=== PATIENT | female | born 1985 | race Caucasian/White ===

== ENCOUNTER 2017-11-17 22:33 | Emergency (ER) | payer OTHER ==
[2017-11-17 22:35] VITALS: BMI 26.4
[2017-11-17] MEDS ORDERED: ONDANSETRON 4 MG/2 ML VIAL IVPUSH ONE (22:59)
[2017-11-17] MEDS ORDERED: morphine CARPU-JECT 4 MG/1 ML DISP.SYRIN IVPUSH ONE (22:59)
[2017-11-17] MEDS ORDERED: SODIUM CHLORIDE 1,000 ML IV STA (22:59)
[2017-11-17] MEDS ORDERED: FAMOTIDINE 20 MG/50 ML IVPB 20 MG/50 ML MG IVPB ONE (23:15)
--- NOTE | 2017-11-17 23:15 | PDOC ---
History of Present Illness - General Chief Complaint: Pain Stated Complaint: ABDOMINAL PAIN Time Seen by Provider: 11/17/17 22:46 History Source: Patient Exam Limitations: No Limitations - History of Present Illness Initial Comments: 11/17/17 23:07 Patient is a 32F with history of x3, bilateral tubal ligation, and tummy tuck here today complaining of 2 day sof abdominal pain. She states that the pain started with multiple episodes of diarrhea with a small amount of blood in one bowel movement. Patient states that the abdominal pain then worsened after these episodes. Denies vomiting and fever, endorses chills and nausea. Patient states that she tried multiple pain killers including dayquil, naproxen, aspirin and motrin. Patient states that she can't get comfortable and says the pain doesn't go away. Denies vaginal pain and vaginal discharge. LMP 1 week ago. Denies pain with urination. Past History - Past Medical History Allergies/Adverse Reactions: Allergies Allergy/AdvReac Type Severity Reaction Status Date / Time No Known Allergies Allergy Verified 11/17/17 22:36 Home Medications: Ambulatory Orders Ibuprofen 800 mg PO QID PRN #30 tablet 04/29/16 COPD: No - Reproductive History (#): 3 Para: 3 Cervical CA: No Dysfunctional Uterine Bleeding: No Ectopic : No Endometrial CA: No Polycystic Ovaries: No Therapeutic (s) & number: No Tubal Ligation: Yes Spontaneous : 0 - Immunization History Immunization Up to Date: Yes - Suicide/Smoking/Psychosocial Hx Smoking Status: Yes Smoking History: Never smoked Have you smoked in the past 12 months: No Number of Cigarettes Smoked Daily: 0 Hx Alcohol Use: Yes (SOCIAL) Drug/Substance Use Hx: No Substance Use Type: None Review of Systems - Review of Systems Comments:: 11/17/17 23:15 GENERAL/CONSTITUTIONAL: No fever or chills. No weakness. HEAD, EYES, EARS, NOSE AND THROAT: No change in vision. No sore throat. CARDIOVASCULAR: No chest pain or shortness of breath RESPIRATORY: No cough, wheezing, or hemoptysis. GASTROINTESTINAL: + nausea, +diarrhea GENITOURINARY: No dysuria, frequency, or change in urination. MUSCULOSKELETAL: No joint or muscle swelling or pain. No neck or back pain. SKIN: No rash NEUROLOGIC: No headache, vertigo, loss of consciousness, or change in strength/ sensation. ENDOCRINE: No increased thirst. No abnormal weight change HEMATOLOGIC/LYMPHATIC: No anemia, easy bleeding, or history of blood clots. ALLERGIC/IMMUNOLOGIC: No hives or skin allergy. *Physical Exam - Vital Signs Last Vital Signs Temp Pulse Resp BP Pulse Ox 98.5 F 64 18 108/71 100 11/17/17 22:33 11/17/17 22:33 11/17/17 22:33 11/17/17 22:33 11/17/17 22:33 - Physical Exam Comments: 11/17/17 23:15 GENERAL: Awake, alert, and fully oriented, in no acute distress HEAD: No signs of trauma, normocephalic, atraumatic EYES: PERRLA, EOMI, sclera anicteric, conjunctiva clear ENT: Auricles normal inspection, hearing grossly normal, nares patent, oropharynx clear without exudates. Moist mucosa NECK: Normal ROM, supple, no lymphadenopathy, JVD, or masses LUNGS: No distress, speaks full sentences, clear to auscultation bilaterally HEART: Regular rate and rhythm, normal S1 and S2, no murmurs, rubs or gallops, peripheral pulses normal and equal bilaterally. ABDOMEN: Soft, +LLQ tenderness, no guarding, no rebound EXTREMITIES: Normal inspection, Normal range of motion, no edema. No clubbing or cyanosis. NEUROLOGICAL: Cranial nerves II through XII grossly intact. Normal speech, no focal sensorimotor deficits SKIN: Warm, Dry, normal turgor, no rashes or lesions noted. ED Treatment Course - LABORATORY CBC & Chemistry Diagram: 11/18/17 00:40 11/18/17 00:40 - RADIOLOGY Radiology Studies Ordered: Category Date Time Status ABDOMEN & PELVIS CT WITH CONTR [CT] Stat CT Scan 11/17/17 23:01 Ordered Medical Decision Making - Medical Decision Making 11/17/17 23:16 Patient is 32F here today complaining of abdominal pain. Vital signs stable and normal. Exam significant for LLQ pain. DDx includes, but is not limited to: colitis, diverticulitis, nephrolithiasis. Do not suspect ovarian torsion given pain's constant nature and associated diarrhea. 11/18/17 03:53 Laboratory Tests 11/18/17 11/18/17 11/18/17 00:40 00:40 01:28 WBC 11.5 H Hgb 11.9 Plt Count 269 BUN 9 Creatinine 0.5 L Serum , Qual Urine Nitrite Negative Ur Leukocyte Esterase Negative 11/18/17 01:41 WBC Hgb Plt Count BUN Creatinine Serum , Qual Negative Urine Nitrite Ur Leukocyte Esterase CBC shows small leukocytosis. CBC otherwise unremarkable. CMP reassuring. UA negative. Serum preg negative. CT scan shows no acute intestinal issues, does show bilateral cysts in each ovary. Patient reassessed, states that her pain has not significantly improved, on exam pain is distractable. At this point, still believe patient has pain secondary to diarrhea and not ovarian torsion, but patient may require ultrasound to rule out torsion. Risks and benefits of waiting until morning discussed with patient, patient states that she wishes to call her OBGYN or return to the ED later this morning. Believe this is reasonable plan, given return precautions. *DC/Admit/Observation/Transfer Diagnosis at time of Disposition: Abdominal pain - Discharge Dispostion Disposition: HOME Condition at time of disposition: Good Decision to Admit order: No - Referrals - Patient Instructions Printed Discharge Instructions: DI for Abdominal Pain-Adult Additional Instructions: Please return if you have any new, worsening or concerning symptoms. Please follow up with your OBYGN this morning or return to the ED. - Post Discharge Activity
[2017-11-18] MEDS ORDERED: morphine SULFATE 4 MG/ML VIAL ONE
[2017-11-18] MEDS ORDERED: ONDANSETRON 4 MG/2 ML VIAL ONE (00:01)
[2017-11-18] MEDS ORDERED: FAMOTIDINE 20 MG/50 ML IVPB 20 MG/50 ML MG IVPB ONE (00:01)
--- NOTE | 2017-11-18 00:32 | PDOC ---
Attending Attestation - Resident Resident Name: [email or web address] - ED Attending Attestation I have performed the following: I have examined & evaluated the patient, The case was reviewed & discussed with the resident, I agree w/resident's findings & plan, Exceptions are as noted - HPI HPI: 11/18/17 00:39 "The patient is a 32 year old female, with a significant past medical history of (x3), bilateral tubal ligation and tummy tuck, who presents to the ED complaining of abdominal pain for the past 2 days. She notes that she has had multiple episodes of watery brown diarrhea. Denies BRBPR or dark tarry stools but notes some blood streaks in the last episode of diarrhea. Pt denies N /V. Endorses lower abdominal pain. She denies any vaginal discharge or bleeding. The patient denies chest pain, shortness of breath, headache and dizziness. Denies fever, chills, nausea, vomiting, constipation. Denies dysuria, frequency , urgency and hematuria. LMP: 1 week ago Allergies: None Past surgical history: (x3), bilateral tubal ligation and tummy tuck Social History: Social Alcohol use. " - Physicial Exam PE: 11/18/17 00:40 "GENERAL: Awake, alert, and fully oriented, in no acute distress. HEAD: No signs of trauma EYES: PERRLA, EOMI, sclera anicteric, conjunctiva clear ENT: Auricles normal inspection, hearing grossly normal, nares patent, oropharynx clear without exudates. Moist mucosa NECK: Nontender, no stepoffs, Normal ROM, supple, no lymphadenopathy, JVD, or masses LUNGS: Breath sounds equal, clear to auscultation bilaterally. No wheezes, and no crackles HEART: Regular rate and rhythm, normal S1 and S2, no murmurs, rubs or gallops ABDOMEN: + LLQ TTP, normoactive bowel sounds. No guarding, no rebound. No masses EXTREMITIES: Normal range of motion, no edema. No clubbing or cyanosis. No cords, erythema, or tenderness NEUROLOGICAL: Cranial nerves II through XII intact. 5/5 strength and sensation in all extremities, Normal speech, normal gait, normal cerebellar function SKIN: Warm, Dry, normal turgor, no rashes or lesions noted. " - Medical Decision Making 11/18/17 00:40 32 F with LLQ pain and N+V. Will evaluate for colitis vs diverticulitis. Pt with h/o ovarian cysts but quality of pain is constant rather than colicky, making torsion less likely. - Labs, UA, UPT - CTAP - IVF, pain control
[2017-11-18 01:10] LABS: BASO % 0.7 % (0-2.0); EOS % 1.3 % (0-4.5); HEMATOCRIT 36.9 % (32.4-45.2); HEMOGLOBIN 11.9 GM/dL (10.7-15.3); LYMPH % 23.3 % (8-40); MCH 26.1 pg (25.7-33.7); MCHC 32.2 g/dl (32.0-36.0); MEAN CELL VOLUME 81.1 fl (80-96); MEAN PLT VOLUME 10.2 fl (7.5-11.1); MONO % 5.8 % (3.8-10.2); NEUT % 68.9 % (42.8-82.8); PLATELET COUNT 269 K/MM3 (134-434); RBC 4.55 M/mm3 (3.60-5.2); WHITE BLOOD COUNT 11.5 K/mm3 (4.0-10.0)
[2017-11-18 01:20] LABS: ALBUMIN 4.6 g/dl (3.4-5.0); ANION GAP 6 (8-16); BLOOD UREA NITROGEN 9 mg/dL (7-18); CALCIUM 8.8 mg/dL (8.5-10.1); CHLORIDE 106 mmol/L (98-107); CO2 28 mmol/L (21-32); CREATININE 0.5 mg/dL (0.55-1.02); GLUCOSE,RANDOM 92 mg/dL (74-106); POTASSIUM 3.7 mmol/L (3.5-5.1); SGOT/AST 20 U/L (15-37); SGPT/ALT 17 U/L (12-78); SODIUM 140 mmol/L (136-145)
[2017-11-18] MEDS ORDERED: morphine CARPU-JECT 4 MG/1 ML DISP.SYRIN IVPUSH ONE (01:20)
[2017-11-18 01:22] LABS: ALK PHOS 73 U/L (45-117); BILIRUBIN,TOTAL 0.2 mg/dL (0.2-1.0)
[2017-11-18 01:29] LABS: LIPASE 201 U/L (73-393)
[2017-11-18 01:48] LABS: URINE APPEARANCE SLCLOUDY; URINE BILIRUBIN NEGATIVE (<2.0 mg/dL); URINE COLOR YELLOW; URINE GLUCOSE (UA) NEGATIVE (NEGATIVE); URINE KETONE NEGATIVE (NEGATIVE); URINE LEUK ESTERASE NEGATIVE (NEGATIVE); URINE NITRITE NEGATIVE (NEGATIVE); URINE PROTEIN NEGATIVE (NEGATIVE); URINE UROBILINOGEN NEGATIVE mg/dL (0.2-1.0)
[2017-11-18] MEDS ORDERED: MORPHINE SULFATE 2 MG/ML VIAL ONE (03:43)
[2017-11-18 04:04] VITALS: BP 122/75; PULSE 72; TEMP 98.3
== END 2017-11-18 04:02 | disposition home or self-care (01) ==
LOC: JER 22:33
PROC: 3E033GC Introduction of Other Therapeutic Substance into Peripheral Vein, Percutaneous Approach (ICD-10-PCS; principal; 2017-11-17)
PROC: 3E033GC Introduction of Other Therapeutic Substance into Peripheral Vein, Percutaneous Approach (ICD-10-PCS; 2017-11-17)
PROC: 3E033NZ Introduction of Analgesics, Hypnotics, Sedatives into Peripheral Vein, Percutaneous Approach (ICD-10-PCS; 2017-11-17)
PROC: 3E033NZ Introduction of Analgesics, Hypnotics, Sedatives into Peripheral Vein, Percutaneous Approach (ICD-10-PCS; 2017-11-17)
DX: R10.30 Lower abdominal pain, unspecified (principal); N83.201 Unspecified ovarian cyst, right side; N83.202 Unspecified ovarian cyst, left side
CPT/HCPCS: 36415; 74177-TC; 80053; 80307; 81003; 83690; 84703; 85025; 99282-25; J7030

== ENCOUNTER 2018-08-03 21:16 | Emergency (ER) | payer OTHER ==
--- NOTE | 2018-08-03 21:25 | PDOC ---
Rapid Medical Evaluation Time Seen by Provider: 08/03/18 21:20 Medical Evaluation: Allergies Allergy/AdvReac Type Severity Reaction Status Date / Time No Known Allergies Allergy Verified 11/17/17 22:36 08/03/18 21:21 I have performed a brief in-person evaluation of this patient. The patient presents with a chief complaint of: Brought in by for "acting weird" admits to taking 5 vicodin 15:00 today, no suicidal or homicidal ideation; chronic back pain Pertinent physical exam findings: NAD I have ordered the following:Tox screen, Tylenol level, CBC, CMP and U preg The patient will proceed to the ED for further evaluation. 08/03/18 21:24 Discharge Disposition - Diagnosis Overdose by acetaminophen, Lower back pain - Referrals - Patient Instructions - Post Discharge Activity
[2018-08-03 21:26] VITALS: BP 116/57; PULSE 96; TEMP 98.4; BMI 31.2
[2018-08-03 21:55] LABS: BASO % 0.5 % (0-2.0); HEMATOCRIT 37.1 % (32.4-45.2); HEMOGLOBIN 11.7 GM/dL (10.7-15.3); LYMPH % 32.2 % (8-40); MCH 26.2 pg (25.7-33.7); MCHC 31.4 g/dl (32.0-36.0); MEAN CELL VOLUME 83.2 fl (80-96); MONO % 6.1 % (3.8-10.2); NEUT % 60.2 % (42.8-82.8); PLATELET COUNT 298 K/MM3 (134-434); RBC 4.46 M/mm3 (3.60-5.2); RDW 15.8 % (11.6-15.6); WHITE BLOOD COUNT 8.6 K/mm3 (4.0-10.0)
[2018-08-03 22:29] LABS: ALBUMIN 4.6 g/dl (3.4-5.0); ALK PHOS 59 U/L (45-117); ANION GAP 8 MMOL/L (8-16); BILIRUBIN,TOTAL 0.2 mg/dL (0.2-1); BLOOD UREA NITROGEN 7 mg/dL (7-18); CHLORIDE 108 mmol/L (98-107); CO2 27 mmol/L (21-32); CREATININE 0.5 mg/dL (0.55-1.3); GLUCOSE,RANDOM 86 mg/dL (74-106); POTASSIUM 3.8 mmol/L (3.5-5.1); SGOT/AST 42 U/L (15-37); SGPT/ALT 28 U/L (13-61); SODIUM 143 mmol/L (136-145); TOT PROT 8.6 g/dl (6.4-8.2)
--- NOTE | 2018-08-03 22:29 | PDOC ---
History of Present Illness - General Chief Complaint: Overdose Stated Complaint: OVERDOSE Time Seen by Provider: 08/03/18 21:20 - History of Present Illness Initial Comments: The pt is a 32F w/ no reported PMH who presents w/ her for 'odd behavior.' The patient states she took a pill given to her by a friend at 1500 today for wrist pain. Denies any other substance use or ingestion. Per the , his has never displayed such behavior which is why he brought her in for evaluation. Per the , the pt is fidgety, slurring her speech, tangential in her speech, and evasive. At baseline he reports she is interactive, clear speech, and coherent. Pt denies falls/trauma today, recent illness/fever. Denies pain. 08/03/18 22:45 Past History - Past Medical History Allergies/Adverse Reactions: Allergies Allergy/AdvReac Type Severity Reaction Status Date / Time No Known Allergies Allergy Verified 08/03/18 21:26 Home Medications: Ambulatory Orders NK [No Known Home Medication] 08/04/18 COPD: No - Reproductive History (#): 3 Para: 3 Cervical CA: No Dysfunctional Uterine Bleeding: No Ectopic : No Endometrial CA: No Polycystic Ovaries: No Therapeutic (s) & number: No Tubal Ligation: Yes Spontaneous : 0 - Immunization History Immunization Up to Date: Yes - Suicide/Smoking/Psychosocial Hx Smoking Status: Yes Smoking History: Never smoked Have you smoked in the past 12 months: No Number of Cigarettes Smoked Daily: 0 Information on smoking cessation initiated: No Hx Alcohol Use: No Drug/Substance Use Hx: Yes Substance Use Type: None Review of Systems - Review of Systems Able to Perform ROS?: Yes Comments:: GENERAL/CONSTITUTIONAL: No fever or chills HEAD, EYES, EARS, NOSE AND THROAT: No change in vision or hearing. No sore throat CARDIOVASCULAR: No chest pain or shortness of breath RESPIRATORY: Denies cough, hemoptysis GASTROINTESTINAL: No nausea, vomiting, diarrhea or constipation GENITOURINARY: No dysuria, frequency, or change in urination MUSCULOSKELETAL: No joint or muscle swelling or pain. No neck or back pain SKIN: No rash NEUROLOGIC: No headache, vertigo, loss of consciousness, or change in strength/ sensation ENDOCRINE: No increased thirst. No abnormal weight change HEMATOLOGIC/LYMPHATIC: No anemia, easy bleeding, or history of blood clots ALLERGIC/IMMUNOLOGIC: No hives or skin allergy 08/03/18 22:28 Is the patient limited Irish proficient: No *Physical Exam - Vital Signs Last Vital Signs Temp Pulse Resp BP Pulse Ox 98.4 F 96 H 18 116/57 L 100 08/03/18 21:23 08/03/18 21:23 08/03/18 21:23 08/03/18 21:23 08/03/18 21:23 - Physical Exam Comments: GENERAL: Awake, and oriented to person/place, in no acute distress, evasive HEAD: No signs of trauma, normocephalic, atraumatic EYES: PERRLA, EOMI, sclera anicteric, conjunctiva clear, no nystagmus ENT: Hearing grossly normal, nares patent, oropharynx clear without exudates. Moist mucosa NECK: Normal ROM, supple, no lymphadenopathy, JVD, or masses_ LUNGS: No distress, speaks full sentences, clear to auscultation bilaterally _ HEART: Regular rate and rhythm, normal S1 and S2, no murmurs appreciated, peripheral pulses normal and equal bilaterally._ ABDOMEN: Soft, nontender, normoactive bowel sounds. No guarding, no rebound. No masses_ EXTREMITIES: Normal inspection, Normal range of motion, no edema. No clubbing or cyanosis_ NEUROLOGICAL: Cranial nerves II through XII grossly intact. Slurred speech, no focal sensorimotor deficits; Follows commands, but requires frequent re- direction; Pt is evasive, does not SKIN: Warm, Dry 08/03/18 22:28 08/03/18 22:48 ED Treatment Course - LABORATORY CBC & Chemistry Diagram: 08/03/18 21:43 08/03/18 21:43 Medical Decision Making - Medical Decision Making The pt is a 32F w/ no reported PMH who presents for evaluation s/p ingestion of an unknown substance. Pt protecting airway and denies trouble breathing ED Course Labs sent Lytes wnl No leukocytosis Acetaminophen neg No anemia No GLENN LFTs wnl Upreg neg UDS pending EtOH/salicylate levels pending 08/03/18 22:54 EtOH neg 08/03/18 23:21 UDS positive for benzodiazepines 08/03/18 23:29 I have transferred care of the patient to Dr. Rob and discussed the clinical presentation, work-up and ED course thus far. 08/03/18 23:50 *DC/Admit/Observation/Transfer Diagnosis at time of Disposition: Lower back pain Qualifiers: Chronicity: unspecified Back pain laterality: unspecified Sciatica presence: unspecified whether sciatica present Qualified Code(s): M54.5 - Low back pain Ingestion of unknown drug Qualifiers: Encounter type: initial encounter Injury intent: accidental or unintentional Qualified Code(s): T50.901A - Poisoning by unspecified drugs, medicaments and biological substances, accidental (unintentional), initial encounter - Discharge Dispostion Disposition: HOME Condition at time of disposition: Improved Decision to Admit order: No - Referrals - Patient Instructions Printed Discharge Instructions: DI for Accidental Ingestion -- Adult Additional Instructions: Come back to the emergency department for any new, worsening or concerning symptom. - Post Discharge Activity
--- NOTE | 2018-08-03 22:42 | PDOC ---
Attending Attestation - HPI HPI: 08/03/18 22:45 The patient is a 32 YOF with no PMH who was brought in by for "acting weird." Patient states her wrist was hurting and received a pill from her friend. Denies homicidal or suicidal ideation. Allergies: NKDA Social Hx: Denies toxic habits. Surgeries: None reported. - Physicial Exam PE: 08/03/18 22:45 Agree with resident's exam. <Tia Hilton - Last Filed: 08/03/18 22:45> - Resident Resident Name: Marco A Nolen - ED Attending Attestation I have performed the following: I have examined & evaluated the patient, The case was reviewed & discussed with the resident, I agree w/resident's findings & plan - Medical Decision Making 08/04/18 01:32 32-year-old female brought in by after examining bruits are behavior Patient admits to taking a pill that she bought from a friend or drug dealer which she states was Xanax Workup consistent with benzodiazepine use Plan for observation in the emergency department until clinically sober for likely discharge home <Sindy Webb - Last Filed: 08/04/18 01:33>
[2018-08-03 23:27] LABS: COCAINE, UR NEGATIVE ng/ml (CUTOFF=300); METHADONE, UR NEGATIVE ng/ml (CUTOFF=300); OPIATES, URI NEGATIVE ng/ml (CUTOFF=300); PHENCYCLIDINE,URINE NEGATIVE ng/ml (CUTOFF=25); URINE AMPHETAMINES NEGATIVE ng/ml (CUTOFF=500); URINE BARBITURATES NEGATIVE ng/ml (CUTOFF=200)
[2018-08-03 23:28] LABS: URINE BENZODIAZEPINES POSITIVE ng/ml (CUTOFF=200)
[2018-08-04] MEDS ORDERED: SODIUM CHLORIDE 1,000 ML IV STA (00:44)
--- NOTE | 2018-08-04 03:09 | PDOC ---
*Physical Exam - Vital Signs Last Vital Signs Temp Pulse Resp BP Pulse Ox 98.4 F 96 H 18 116/57 L 100 08/03/18 21:23 08/03/18 21:23 08/03/18 21:23 08/03/18 21:23 08/03/18 21:23 ED Treatment Course - LABORATORY CBC & Chemistry Diagram: 08/03/18 21:43 08/03/18 21:43 - ADDITIONAL ORDERS Additional order review: Laboratory Results 08/03/18 08/03/18 08/03/18 22:26 22:26 21:43 Sodium 143 Potassium 3.8 Chloride 108 H Carbon Dioxide 27 Anion Gap 8 BUN 7 Creatinine 0.5 L Creat Clearance w eGFR 144.87 Random Glucose 86 Calcium 9.0 Total Bilirubin 0.2 AST 42 H ALT 28 Alkaline Phosphatase 59 Total Protein 8.6 H Albumin 4.6 Urine HCG, Qual Negative Salicylates < 1.7 L Opiates Screen Negative Methadone Screen Negative Acetaminophen < 2.00 L Barbiturate Screen Negative Phencyclidine Screen Negative Ur Amphetamines Screen Negative MDMA (Ecstasy) Screen Negative Benzodiazepines Screen Positive A* Cocaine Screen Negative U Marijuana (THC) Screen Negative Alcohol, Quantitative < 3.0 08/03/18 21:43 RBC 4.46 MCV 83.2 MCHC 31.4 L RDW 15.8 H MPV 9.0 D Neutrophils % 60.2 Lymphocytes % 32.2 D Monocytes % 6.1 Eosinophils % 1.0 Basophils % 0.5 Medical Decision Making - Medical Decision Making 08/04/18 03:07 Patient now awake and back to baseline. Alert and oriented x3 Will d/c with return precautions. *DC/Admit/Observation/Transfer Diagnosis at time of Disposition: Lower back pain Qualifiers: Chronicity: unspecified Back pain laterality: unspecified Sciatica presence: unspecified whether sciatica present Qualified Code(s): M54.5 - Low back pain Ingestion of unknown drug Qualifiers: Encounter type: initial encounter Injury intent: accidental or unintentional Qualified Code(s): T50.901A - Poisoning by unspecified drugs, medicaments and biological substances, accidental (unintentional), initial encounter - Discharge Dispostion Disposition: HOME Condition at time of disposition: Improved Decision to Admit order: No - Referrals - Patient Instructions Printed Discharge Instructions: DI for Accidental Ingestion -- Adult Additional Instructions: Come back to the emergency department for any new, worsening or concerning symptom. - Post Discharge Activity
--- NOTE | 2018-08-04 11:48 | EKG ---
Test Reason : Blood Pressure : / mmHG Vent. Rate : 080 BPM Atrial Rate : 080 BPM P-R Int : 162 ms QRS Dur : 086 ms QT Int : 390 ms P-R-T Axes : 048 010 022 degrees QTc Int : 449 ms NORMAL SINUS RHYTHM WITH SINUS ARRHYTHMIA NORMAL ECG WHEN COMPARED WITH ECG OF 04-JAN-2007 16:56, NO SIGNIFICANT CHANGE WAS FOUND Confirmed by ORTIZ MARSH MD ([id number]) on 08/04/2018 11:47:48 AM Referred By: Confirmed By:ORTIZ MARSH MD
== END 2018-08-04 04:40 | disposition home or self-care (01) ==
LOC: JER 21:16
DX: T42.4X1A Poisoning by benzodiazepines, accidental (unintentional), initial encounter (principal); M54.5 Low back pain; M25.539 Pain in unspecified wrist; Y92.038 Other place in apartment as the place of occurrence of the external cause
CPT/HCPCS: 36415; 80053; 80307; 84703; 85025; 93005; 93010; 99283-25

== ENCOUNTER 2020-04-08 11:08 | Emergency (ER) | payer OTHER ==
[2020-04-08 11:29] VITALS: BP 109/66; PULSE 70; TEMP 98.7; BMI 31.8
[2020-04-08] MEDS ORDERED: KETOROLAC TROMETHAMINE 30 MG/1 ML VIAL IM ONE (11:54)
[2020-04-08] MEDS ORDERED: diazePAM 5 MG TABLET PO ONE (11:54)
[2020-04-08] MEDS ORDERED: KETOROLAC TROMETHAMINE 30 MG/1 ML VIAL ONE (12:11)
[2020-04-08] MEDS ORDERED: diazePAM 5 MG TABLET ONE (12:12)
== END 2020-04-08 12:45 | disposition home or self-care (01) ==
LOC: JERFT 11:08
PROC: 3E0233Z Introduction of Anti-inflammatory into Muscle, Percutaneous Approach (ICD-10-PCS; principal; 2020-04-08)
DX: M25.512 Pain in left shoulder (principal)
CPT/HCPCS: 73030-TC-LT-FY; 99284-25

== ENCOUNTER 2021-07-31 03:12 | Emergency (ER) | payer OTHER ==
[2021-07-31] MEDS ORDERED: TETRACAINE 0.5% HCL 0.6ML DROPPER.BOTTLE OD ONE (03:35)
[2021-07-31] MEDS ORDERED: TETRACAINE 0.5% OPHTH SOLN 2 ML BOTTLE ONE (03:40)
[2021-07-31] MEDS ORDERED: FLUORESCEIN NA 1 EA STRIP ONE ×2 (03:40)
[2021-07-31] MEDS ORDERED: FLUORESCEIN NA 1 EA STRIP OU ONE (03:40)
[2021-07-31 03:43] VITALS: BP 141/84; PULSE 89; TEMP 98; BMI 25.4
[2021-07-31] MEDS ORDERED: IBUPROFEN 600 MG TABLET (FP) PO ONE (03:48)
[2021-07-31] MEDS ORDERED: KETOROLAC TROMETHAMINE 30 MG/1 ML VIAL IM ONE (04:14)
[2021-07-31] MEDS ORDERED: KETOROLAC TROMETHAMINE 30 MG/1 ML VIAL ONE (04:28)
[2021-07-31] MEDS ORDERED: ERYTHROMYCIN 0.5% OPHTHALMIC OINTMENT 3.5 GM TUBE OD ONE (04:33)
[2021-07-31] MEDS ORDERED: ERYTHROMYCIN 0.5% OPHTHALMIC OINTMENT 3.5 GM TUBE ONE (04:39)
[2021-07-31] MEDS ORDERED: KETOROLAC TROMETHAMINE 0.5% EYE DROP 1 DROP DROPS OD ONE (05:52)
== END 2021-07-31 06:28 | disposition home or self-care (01) ==
LOC: JER 03:12
PROC: 3E0233Z Introduction of Anti-inflammatory into Muscle, Percutaneous Approach (ICD-10-PCS; principal; 2021-07-31)
DX: H10.33 Unspecified acute conjunctivitis, bilateral (principal)
CPT/HCPCS: 99285-25

== ENCOUNTER 2022-11-19 05:50 | Day surgery (SDC) | payer OTHER ==
[2022-11-19] MEDS ORDERED: ONDANSETRON 4 MG/2 ML VIAL IVPB ONE (06:13)
[2022-11-19] MEDS ORDERED: ACETAMINOPHEN 1000 MG/100 ML BAG IVPB ONE (06:13)
[2022-11-19] MEDS ORDERED: SODIUM CHLORIDE 0.9% 500 ML INFUS.BAG IV ONE (06:13)
[2022-11-19] MEDS ORDERED: FAMOTIDINE 20 MG/50 ML IVPB 20 MG/50 ML MG IVPB ONE (06:14)
[2022-11-19] MEDS ORDERED: FAMOTIDINE 10 MG/ML VIAL IVPB ONE (06:17)
[2022-11-19] MEDS ORDERED: ACETAMINOPHEN INJECTION 100 ML IVPB ONE ×2 (06:17→13:54)
[2022-11-19] MEDS ORDERED: ONDANSETRON 4 MG/2 ML VIAL ONE (06:17)
[2022-11-19 07:09] LABS: BASO % 0.6 % (0-2.0); EOS % 1.1 % (0-4.5); HEMATOCRIT 28.9 % (32.4-45.2); HEMOGLOBIN 9.2 GM/dL (10.7-15.3); LYMPH % 22.4 % (8-40); MCH 21.2 pg (25.7-33.7); MCHC 31.8 g/dl (32.0-36.0); MEAN CELL VOLUME 66.7 fl (80-96); MONO % 6.1 % (3.8-10.2); NEUT % 69.8 % (42.8-82.8); PLATELET COUNT 393 10^3/uL (134-434); POTASSIUM 3.6 mmol/L (3.5-5.1); RBC 4.34 M/mm3 (3.60-5.2); RDW 16.5 % (11.6-15.6)
[2022-11-19 07:12] LABS: ALBUMIN 4.3 g/dl (3.4-5.0); BLOOD UREA NITROGEN 9.3 mg/dL (7-18); CALCIUM 9.3 mg/dL (8.5-10.1); MAGNESIUM 1.9 mg/dL (1.8-2.4)
[2022-11-19 07:15] LABS: CREATININE 0.7 mg/dL (0.55-1.3); PHOSPHOROUS 1.6 mg/dL (2.5-4.9)
[2022-11-19 07:16] LABS: BILIRUBIN,TOTAL 0.3 mg/dL (0.2-1); TOT PROT 8.5 g/dl (6.4-8.2)
[2022-11-19] MEDS ORDERED: morphine CARPU-JECT 4 MG/1 ML DISP.SYRIN IVPUSH ONE (07:39)
[2022-11-19] MEDS ORDERED: morphine SULFATE 4 MG/ML VIAL ONE (07:49)
[2022-11-19 08:07] LABS: HCG,QUALITATIVE URINE Negative
[2022-11-19 08:08] LABS: LACTIC ACID 2.2 mmol/L (0.4-2.0)
[2022-11-19 08:34] LABS: PH,URINE >= 9.0 (5.0-8.0); URINE APPEARANCE CLEAR; URINE BILIRUBIN NEGATIVE (NEGATIVE); URINE COLOR YELLOW; URINE GLUCOSE (UA) NEGATIVE (NEGATIVE); URINE KETONE NEGATIVE (NEGATIVE); URINE LEUK ESTERASE NEGATIVE (NEGATIVE); URINE NITRITE NEGATIVE (NEGATIVE); URINE PROTEIN NEGATIVE (NEGATIVE); URINE UROBILINOGEN 0.2 mg/dL (0.2-1.0)
[2022-11-19] MEDS ORDERED: FENTANYL CITRATE/PF 50 MCG/ML VIAL ONE ×3 (08:56→11:21)
[2022-11-19 09:16] LABS: ANISOCYTOSIS 2+; MACROCYTOSIS 0
[2022-11-19] MEDS ORDERED: HYDROmorphone HCl 2 MG/ML VIAL ONE (13:58)
[2022-11-19] MEDS ORDERED: KETAMINE HCL 500 MG/10 ML VIAL ONE (13:59)
[2022-11-19] MEDS ORDERED: PROPOFOL 20 ML ONE (13:59)
[2022-11-19] MEDS ORDERED: ROCURONIUM BROMIDE 50 MG/5 ML SYRINGE ONE ×2 (14:06→15:43)
[2022-11-19] MEDS ORDERED: GLYCOPYRROLATE 0.2 MG/1 ML VIAL ONE (14:08)
[2022-11-19] MEDS ORDERED: MIDAZOLAM HCL 2 MG/2 ML SINGLE DOSE VIAL ONE (14:09)
[2022-11-19] MEDS ORDERED: BUPIVACAINE HCL/PF 0.5% (5MG/ML) 10 ML VIAL ONE (14:25)
[2022-11-19] MEDS ORDERED: BUPIVACAINE HCL/PF 0.5% (5MG/ML) 10 ML VIAL IJ ONE ×2 (14:26)
[2022-11-19] MEDS ORDERED: ONDANSETRON 4 MG/2 ML VIAL IVPUSH PRN (16:49)
[2022-11-19] MEDS ORDERED: LACTATED RINGERS SOLUTION 1,000 ML IV SCH (17:00)
[2022-11-19] MEDS ORDERED: ceFAZolin SODIUM 1 GM VIAL ONE (17:11)
[2022-11-19] MEDS ORDERED: ceFAZolin 2 GRAM PREMIX BAG IVPB ONE (17:15)
[2022-11-19] MEDS: ACETAMINOPHEN 325 MG TABLET (FP) PO PRN (20:50)
[2022-11-19] MEDS: oxyCODONE HCL 5 MG TABLET PO PRN (20:50)
[2022-11-19] MEDS: IBUPROFEN 800 MG/8 ML IJ IVPB PRN (23:53)
[2022-11-20] MEDS: oxyCODONE HCL 5 MG TABLET PO PRN ×2 (05:15→11:29)
[2022-11-20] MEDS: ACETAMINOPHEN 325 MG TABLET (FP) PO PRN (05:15)
[2022-11-20] MEDS: IBUPROFEN 800 MG/8 ML IJ IVPB PRN ×2 (06:52→16:38)
[2022-11-20] MEDS ORDERED: ACETAMINOPHEN/CAFFEINE/BUTALBITAL 1 TAB PO ONE (09:56)
[2022-11-20 10:10] LABS: BASO % 0.3 % (0-2.0); EOS % 0.2 % (0-4.5); HEMATOCRIT 26.7 % (32.4-45.2); HEMOGLOBIN 8.1 GM/dL (10.7-15.3); LYMPH % 18.7 % (8-40); MCHC 30.3 g/dl (32.0-36.0); MEAN CELL VOLUME 69.5 fl (80-96); MEAN PLT VOLUME 8.6 fl (7.5-11.1); MONO % 7.3 % (3.8-10.2); NEUT % 73.5 % (42.8-82.8); PLATELET COUNT 381 10^3/uL (134-434); RBC 3.84 M/mm3 (3.60-5.2); RDW 16.4 % (11.6-15.6)
[2022-11-20 10:55] VITALS: BMI 30.2
[2022-11-20 22:04] LABS: BASO % 0.3 % (0-2.0); EOS % 0.9 % (0-4.5); HEMATOCRIT 26.9 % (32.4-45.2); HEMOGLOBIN 8.2 GM/dL (10.7-15.3); LYMPH % 29.5 % (8-40); MCHC 30.3 g/dl (32.0-36.0); MEAN CELL VOLUME 69.3 fl (80-96); MEAN PLT VOLUME 8.3 fl (7.5-11.1); NEUT % 62.3 % (42.8-82.8); PLATELET COUNT 365 10^3/uL (134-434); RBC 3.88 M/mm3 (3.60-5.2); RDW 16.6 % (11.6-15.6); WHITE BLOOD COUNT 10.5 K/mm3 (4.0-10.0)
[2022-11-20 22:19] LABS: POTASSIUM 3.5 mmol/L (3.5-5.1)
[2022-11-20 22:21] LABS: CALCIUM 8.4 mg/dL (8.5-10.1)
[2022-11-20 22:22] LABS: BLOOD UREA NITROGEN 8.2 mg/dL (7-18)
[2022-11-20 22:25] LABS: CREATININE 0.6 mg/dL (0.55-1.3)
[2022-11-20 22:26] LABS: BILIRUBIN,TOTAL 0.2 mg/dL (0.2-1)
[2022-11-20 22:29] LABS: ALBUMIN 3.4 g/dl (3.4-5.0)
[2022-11-21] MEDS: IBUPROFEN 800 MG/8 ML IJ IVPB PRN ×2 (01:50→10:28)
[2022-11-21] MEDS: oxyCODONE HCL 5 MG TABLET PO PRN (04:18)
[2022-11-21 12:40] VITALS: BP 126/93; PULSE 61; RESP 17; TEMP 98
== END 2022-11-21 15:21 | disposition home or self-care (01) ==
LOC: JER 05:50 → JASUSAT 12:32 → J8W 20:42 → JASUSAT 11-21 15:21
PROVIDERS: ATTEND Student in an Organized Health Care Education/Training Program
PROC: 0UB64ZZ Excision of Left Fallopian Tube, Percutaneous Endoscopic Approach (ICD-10-PCS; 2022-11-19)
PROC: 0DNW4ZZ Release Peritoneum, Percutaneous Endoscopic Approach (ICD-10-PCS; 2022-11-19)
PROC: 0UB14ZZ Excision of Left Ovary, Percutaneous Endoscopic Approach (ICD-10-PCS; principal; 2022-11-19 13:00)
DX: N83.512 Torsion of left ovary and ovarian pedicle (principal); N83.202 Unspecified ovarian cyst, left side; N73.6 Female pelvic peritoneal adhesions (postinfective)
CPT/HCPCS: 36415; 74177-TC; 76830-TC; 80053; 81003; 83605; 83690; 83735; 84100; 84703; 85025; 86850; 86900; 86901; 87086; 88305-TC; 93005; 93010; 94760; 99285-25; Q9967

== ENCOUNTER 2022-12-12 20:50 | Inpatient (IN) | payer OTHER ==
[2022-12-12 22:30] LABS: EOS % 3.7 % (0-4.5); HEMATOCRIT 25.1 % (32.4-45.2); HEMOGLOBIN 7.7 GM/dL (10.7-15.3); LYMPH % 23.7 % (8-40); MCH 20.7 pg (25.7-33.7); MCHC 30.7 g/dl (32.0-36.0); MEAN CELL VOLUME 67.5 fl (80-96); MONO % 7.9 % (3.8-10.2); NEUT % 63.7 % (42.8-82.8); PLATELET COUNT 416 10^3/uL (134-434); RBC 3.72 M/mm3 (3.60-5.2); RDW 17.5 % (11.6-15.6); WHITE BLOOD COUNT 8.1 K/mm3 (4.0-10.0)
[2022-12-12] MEDS ORDERED: VANCOMYCIN 1,000 MG in DEXTROSE 5%-WATER - 250 ML IVPB ONE (22:33)
[2022-12-12] MEDS ORDERED: PIPERACILLIN/TAZOB 3.375 GM 3.375 GM in DEXTROSE 5%-WATER - 50 ML IVPB ONE (22:34)
[2022-12-12 22:50] LABS: BLOOD UREA NITROGEN 9.1 mg/dL (7-18); CALCIUM 8.6 mg/dL (8.5-10.1)
[2022-12-12 22:53] LABS: CREATININE 0.6 mg/dL (0.55-1.3)
[2022-12-12 22:55] LABS: BILIRUBIN,TOTAL 0.2 mg/dL (0.2-1); TOT PROT 8.1 g/dl (6.4-8.2)
[2022-12-12 23:15] LABS: URINE APPEARANCE CLEAR; URINE BILIRUBIN NEGATIVE (NEGATIVE); URINE COLOR YELLOW; URINE GLUCOSE (UA) NEGATIVE (NEGATIVE); URINE KETONE NEGATIVE (NEGATIVE); URINE LEUK ESTERASE NEGATIVE (NEGATIVE); URINE NITRITE NEGATIVE (NEGATIVE); URINE PROTEIN NEGATIVE (NEGATIVE)
[2022-12-12] MEDS ORDERED: VANCOMYCIN/WATER FOR INJ (PEG) 1,000 MG/200 ML BAG IVPB ONE (23:46)
[2022-12-12] MEDS ORDERED: PIPERACILLIN/TAZOB 3.375 GM 3.375 GM/50 ML BAG IVPB ONE (23:46)
[2022-12-13 01:52] LABS: INR 1.07 (0.83-1.09); PROTHROMBIN TIME (PATIENT) 12.4 SEC (9.7-13.0)
[2022-12-13 04:48] LABS: OVALOCYTE 1+; ROULEAU 1+
[2022-12-13] MEDS ORDERED: ACETAMINOPHEN 325 MG TABLET (FP) PO PRN (10:53)
[2022-12-13] MEDS: PIPERACILLIN/TAZOB 3.375 GM 3.375 GM in DEXTROSE 5%-WATER - 50 ML IVPB SCH (17:13)
[2022-12-13] MEDS: KETOROLAC TROMETHAMINE 15 MG/ML VIAL IVPUSH PRN (17:14)
[2022-12-13 17:36] VITALS: BMI 28.5
[2022-12-13] MEDS: HEPARIN NA (PORCINE) 5,000 UNITS/ML 1ML VIAL SQ SCH (21:48)
[2022-12-14] MEDS: KETOROLAC TROMETHAMINE 15 MG/ML VIAL IVPUSH PRN ×4 (00:16→22:14)
[2022-12-14] MEDS: PIPERACILLIN/TAZOB 3.375 GM 3.375 GM in DEXTROSE 5%-WATER - 50 ML IVPB SCH ×3 (02:37→18:57)
[2022-12-14 09:54] LABS: BASO % 0.9 % (0-2.0); EOS % 4.3 % (0-4.5); HEMATOCRIT 24.3 % (32.4-45.2); HEMOGLOBIN 7.4 GM/dL (10.7-15.3); LYMPH % 31.3 % (8-40); MCH 20.7 pg (25.7-33.7); MCHC 30.5 g/dl (32.0-36.0); MEAN PLT VOLUME 8.1 fl (7.5-11.1); MONO % 6.7 % (3.8-10.2); NEUT % 56.8 % (42.8-82.8); PLATELET COUNT 418 10^3/uL (134-434); RBC 3.58 M/mm3 (3.60-5.2); RDW 17.1 % (11.6-15.6); WHITE BLOOD COUNT 6.8 K/mm3 (4.0-10.0)
[2022-12-14] MEDS ORDERED: BUPRENORPHINE/NALOXONE 12 MG-3 MG SL FILM PACKET SL SCH (10:00)
[2022-12-14] MEDS: HEPARIN NA (PORCINE) 5,000 UNITS/ML 1ML VIAL SQ SCH ×2 (10:13→22:06)
[2022-12-14 10:17] LABS: CHLORIDE 108 mmol/L (98-107); POTASSIUM 4.1 mmol/L (3.5-5.1); SODIUM 140 mmol/L (136-145)
[2022-12-14 10:21] LABS: CALCIUM 8.3 mg/dL (8.5-10.1); GLUCOSE,RANDOM 96 mg/dL (74-106)
[2022-12-14 10:22] LABS: ALBUMIN 3.7 g/dl (3.4-5.0); ANION GAP 5 MMOL/L (8-16); BLOOD UREA NITROGEN 12.9 mg/dL (7-18); CO2 27 mmol/L (21-32)
[2022-12-14 10:24] LABS: CREATININE 0.7 mg/dL (0.55-1.3); IRON SERUM 17 ug/dL (50-175); SGOT/AST 34 U/L (15-37); SGPT/ALT 26 U/L (13-61); TOTAL IRON BINDING CAPACITY 433 ug/dL (250-450)
[2022-12-14 10:27] LABS: BILIRUBIN,TOTAL < 0.1 mg/dL (0.2-1); TOT PROT 7.2 g/dl (6.4-8.2)
[2022-12-14 10:28] LABS: ALK PHOS 67 U/L (45-117)
[2022-12-14] MEDS: BUPRENORPHINE/NALOXONE 1 EACH, BUPRENORPHINE/NALOXONE 2 EACH SL SCH ×2 (10:30→22:12)
[2022-12-14] MEDS ORDERED: FOLIC ACID 1 MG TABLET (FP) PO ONE (14:36)
[2022-12-14] MEDS: CEFAZOLIN SODIUM 2 GM in DEXTROSE 5%-WATER 100 ML IVPB SCH (17:35)
[2022-12-14] MEDS: cloNIDine HCL 0.1 MG TABLET PO SCH (22:07)
[2022-12-14 22:29] VITALS: RESP 18
[2022-12-15] MEDS: CEFAZOLIN SODIUM 2 GM in DEXTROSE 5%-WATER 100 ML IVPB SCH ×2 (02:17→10:41)
[2022-12-15 09:29] LABS: BASO % 0.7 % (0-2.0); EOS % 3.9 % (0-4.5); HEMATOCRIT 24.1 % (32.4-45.2); HEMOGLOBIN 7.3 GM/dL (10.7-15.3); LYMPH % 34.5 % (8-40); MCH 20.5 pg (25.7-33.7); MCHC 30.5 g/dl (32.0-36.0); MEAN CELL VOLUME 67.3 fl (80-96); MEAN PLT VOLUME 7.8 fl (7.5-11.1); MONO % 6.3 % (3.8-10.2); NEUT % 54.6 % (42.8-82.8); PLATELET COUNT 339 10^3/uL (134-434); RBC 3.58 M/mm3 (3.60-5.2); RDW 17.7 % (11.6-15.6); WHITE BLOOD COUNT 6.5 K/mm3 (4.0-10.0)
[2022-12-15] MEDS ORDERED: CITALOPRAM HYDROBROMIDE 10 MG TABLET PO SCH (10:00)
[2022-12-15] MEDS ORDERED: FOLIC ACID 1 MG TABLET (FP) PO SCH (10:00)
[2022-12-15] MEDS: KETOROLAC TROMETHAMINE 15 MG/ML VIAL IVPUSH PRN (10:41)
[2022-12-15] MEDS: BUPRENORPHINE/NALOXONE 1 EACH, BUPRENORPHINE/NALOXONE 2 EACH SL SCH (10:47)
[2022-12-15] MEDS: HEPARIN NA (PORCINE) 5,000 UNITS/ML 1ML VIAL SQ SCH (10:47)
[2022-12-15] MEDS: cloNIDine HCL 0.1 MG TABLET PO SCH (10:47)
[2022-12-15 10:52] LABS: POTASSIUM 4.5 mmol/L (3.5-5.1)
[2022-12-15 11:00] LABS: CALCIUM 7.9 mg/dL (8.5-10.1)
[2022-12-15 11:01] LABS: ALBUMIN 3.5 g/dl (3.4-5.0); BLOOD UREA NITROGEN 14.2 mg/dL (7-18); MAGNESIUM 2.4 mg/dL (1.8-2.4)
[2022-12-15 11:04] LABS: CREATININE 0.6 mg/dL (0.55-1.3)
[2022-12-15 11:06] LABS: BILIRUBIN,TOTAL 0.3 mg/dL (0.2-1); TOT PROT 6.9 g/dl (6.4-8.2)
[2022-12-15 14:01] VITALS: BP 107/59; PULSE 68; TEMP 98.1
[2022-12-15] MEDS ORDERED: FUROSEMIDE 40 MG/4 ML INJECTABLE VIAL IVPUSH ONE (16:04)
== END 2022-12-15 18:20 | disposition home or self-care (01) | DRG 383 ==
LOC: JER 20:50 → JERBED 12-13 08:05 → J7W 12-13 16:26
PROVIDERS: ADMIT Internal Medicine; ATTEND Internal Medicine
DX: L03.115 Cellulitis of right lower limb (principal); I87.2 Venous insufficiency (chronic) (peripheral); I10 Essential (primary) hypertension; D50.9 Iron deficiency anemia, unspecified; D64.9 Anemia, unspecified; J98.11 Atelectasis; L03.116 Cellulitis of left lower limb
CPT/HCPCS: 36415; 71045-TC-FY; 71275-TC; 80053; 81003; 82607; 82728; 82746; 83540; 83550; 83735; 83880; 84484; 84703; 85025; 85045; 85379; 85610; 85730; 86850; 86900; 86901; 93005; 93010; 93306-TC; 93970-TC; 99285-25; J1644; Q9967

== ENCOUNTER 2023-11-29 20:18 | Inpatient (IN) | payer OTHER ==
[2023-11-29] MEDS ORDERED: morphine SULFATE 4 MG/ML VIAL ONE (21:52)
[2023-11-29] MEDS: morphine CARPU-JECT 4 MG/1 ML DISP.SYRIN IVPUSH ONE (21:59)
[2023-11-29 22:04] LABS: BASO % 0.5 % (0-2.0); EOS % 1.3 % (0-4.5); HEMATOCRIT 29.7 % (32.4-45.2); HEMOGLOBIN 9.4 GM/dL (10.7-15.3); LYMPH % 28.9 % (8-40); MCH 21.7 pg (25.7-33.7); MCHC 31.5 g/dl (32.0-36.0); MEAN CELL VOLUME 68.9 fl (80-96); MEAN PLT VOLUME 8.6 fl (7.5-11.1); NEUT % 61.3 % (42.8-82.8); PLATELET COUNT 376 10^3/uL (134-434); RDW 18.1 % (11.6-15.6); WHITE BLOOD COUNT 10.1 K/mm3 (4.0-10.0)
[2023-11-29 22:05] LABS: INR 1.17 (0.83-1.09); PROTHROMBIN TIME (PATIENT) 13.2 SEC (9.7-13.0)
[2023-11-29 22:07] LABS: ACTIVATED PTT 31.1 SECONDS (25.2-36.5)
[2023-11-29 22:22] LABS: POTASSIUM 4.2 mmol/L (3.5-5.1)
[2023-11-29 22:24] LABS: CALCIUM 8.9 mg/dL (8.5-10.1)
[2023-11-29 22:28] LABS: CREATININE 0.7 mg/dL (0.55-1.3)
[2023-11-29 22:29] LABS: BILIRUBIN,TOTAL 0.2 mg/dL (0.2-1)
[2023-11-29 22:30] LABS: TOT PROT 8.1 g/dl (6.4-8.2)
[2023-11-29 23:21] LABS: HIV INTERPRETATION NEGATIVE (NEGATIVE)
[2023-11-29 23:24] LABS: EPI CELLS >36 /uL (0-25.1); HCG,QUALITATIVE URINE Negative; HYALINE CASTS 22 /uL (0-3.1); URINE APPEARANCE CLOUDY; URINE BACTERIA >9,000 /uL (0-1359); URINE BILIRUBIN NEGATIVE (NEGATIVE); URINE COLOR YELLOW; URINE GLUCOSE (UA) NEGATIVE (NEGATIVE); URINE KETONE NEGATIVE (NEGATIVE); URINE LEUK ESTERASE 2+ (NEGATIVE); URINE NITRITE POSITIVE (NEGATIVE); URINE PROTEIN TRACE (NEGATIVE); URINE RBC 12 /uL (0-23.9); URINE WBC 349 /uL (0-25.8)
[2023-11-29] MEDS ORDERED: CEFTRIAXONE 1 GM/50 ML BAG ONE (23:38)
[2023-11-30] MEDS ORDERED: KETOROLAC TROMETHAMINE 15 MG/ML VIAL ONE (01:09)
[2023-11-30] MEDS: KETOROLAC TROMETHAMINE 15 MG/ML VIAL IVPUSH ONE ×2 (01:18→15:05)
[2023-11-30] MEDS: morphine CARPU-JECT 4 MG/1 ML DISP.SYRIN IVPUSH ONE (02:23)
[2023-11-30] MEDS ORDERED: morphine SULFATE 4 MG/ML VIAL ONE (02:26)
[2023-11-30 06:35] LABS: POTASSIUM 3.2 mmol/L (3.5-5.1)
[2023-11-30 06:39] LABS: BASO % 0.6 % (0-2.0); EOS % 1.8 % (0-4.5); LYMPH % 31.8 % (8-40); MCH 22.5 pg (25.7-33.7); MCHC 32.2 g/dl (32.0-36.0); MONO % 5.9 % (3.8-10.2); NEUT % 59.9 % (42.8-82.8); PLATELET COUNT 334 10^3/uL (134-434); RDW 18.3 % (11.6-15.6); WHITE BLOOD COUNT 9.1 K/mm3 (4.0-10.0)
[2023-11-30 06:42] LABS: ALBUMIN 3.7 g/dl (3.4-5.0); BLOOD UREA NITROGEN 13.6 mg/dL (7-18); CALCIUM 8.6 mg/dL (8.5-10.1)
[2023-11-30 06:44] LABS: MAGNESIUM 1.9 mg/dL (1.8-2.4)
[2023-11-30 06:45] LABS: CREATININE 0.7 mg/dL (0.55-1.3); PHOSPHOROUS 3.6 mg/dL (2.5-4.9)
[2023-11-30 06:47] LABS: BILIRUBIN,TOTAL 0.2 mg/dL (0.2-1); TOT PROT 7.3 g/dl (6.4-8.2)
[2023-11-30] MEDS ORDERED: MORPHINE SULFATE 2 MG/ML SYRINGE ONE (08:44)
[2023-11-30] MEDS: MORPHINE SULFATE 2 MG/ML SYRINGE IVPUSH PRN (08:52)
[2023-11-30] MEDS ORDERED: cloNIDine HCL 0.1 MG TABLET PO SCH (10:00)
[2023-11-30] MEDS ORDERED: CITALOPRAM HYDROBROMIDE 10 MG TABLET PO SCH (10:00)
[2023-11-30] MEDS ORDERED: KETOROLAC TROMETHAMINE 15 MG/ML VIAL IVPUSH ONE (11:45)
[2023-11-30] MEDS: POLYETHYLENE GLYCOL (HEALTHYLAX) 3350 17 GM PACKET PO SCH ×2 (12:11→21:34)
[2023-11-30] MEDS: ENOXAPARIN NA (PORCINE) 40 MG/0.4 ML DISP.SYRIN SQ SCH (12:56)
[2023-11-30] MEDS: morphine SULFATE 4 MG/ML VIAL IVPUSH PRN (12:58)
[2023-11-30] MEDS: ESCITALOPRAM OXALATE 10 MG TABLET PO SCH (13:03)
[2023-11-30] MEDS: IRON SUCROSE INJECTION 200 MG in SODIUM CHLORIDE 100 ML IVPB ONE (13:04)
[2023-11-30] MEDS: PEG 3350/NA SULF BICARB CL/KCL 4000 ML SOLN.RECON PO ONE (17:09)
[2023-11-30] MEDS: POTASSIUM CHLORIDE ORAL LIQUID 20 MEQ/15 ML PO ONE (20:55)
[2023-12-01] MEDS: KETOROLAC TROMETHAMINE 15 MG/ML VIAL IVPUSH ONE (02:50)
[2023-12-01] MEDS: MELATONIN 5 MG TABLETS PO PRN (02:52)
[2023-12-01 11:03] LABS: BASO % 0.9 % (0-2.0); EOS % 2.2 % (0-4.5); HEMATOCRIT 31.9 % (32.4-45.2); HEMOGLOBIN 9.9 GM/dL (10.7-15.3); LYMPH % 25.6 % (8-40); MCH 21.8 pg (25.7-33.7); MCHC 31.1 g/dl (32.0-36.0); MEAN CELL VOLUME 70.1 fl (80-96); MEAN PLT VOLUME 9.1 fl (7.5-11.1); MONO % 4.9 % (3.8-10.2); NEUT % 66.4 % (42.8-82.8); PLATELET COUNT 391 10^3/uL (134-434); RBC 4.54 M/mm3 (3.60-5.2); RDW 18.9 % (11.6-15.6); WHITE BLOOD COUNT 8.6 K/mm3 (4.0-10.0)
[2023-12-01 11:10] LABS: INR 1.14 (0.83-1.09); PROTHROMBIN TIME (PATIENT) 12.8 SEC (9.7-13.0)
[2023-12-01 11:24] LABS: POTASSIUM 4.1 mmol/L (3.5-5.1)
[2023-12-01 11:29] LABS: ALBUMIN 3.8 g/dl (3.4-5.0); BLOOD UREA NITROGEN 12.7 mg/dL (7-18); MAGNESIUM 2.2 mg/dL (1.8-2.4)
[2023-12-01 11:32] LABS: PHOSPHOROUS 3.8 mg/dL (2.5-4.9)
[2023-12-01 11:33] LABS: CREATININE 0.5 mg/dL (0.55-1.3)
[2023-12-01 11:34] LABS: BILIRUBIN,TOTAL 0.3 mg/dL (0.2-1); TOT PROT 7.3 g/dl (6.4-8.2)
[2023-12-01] MEDS: POLYETHYLENE GLYCOL (HEALTHYLAX) 3350 17 GM PACKET PO SCH (13:20)
[2023-12-01] MEDS: PEG 3350/NA SULF BICARB CL/KCL 4000 ML SOLN.RECON PO ONE (15:07)
[2023-12-01 15:57] VITALS: BMI 31.2
[2023-12-01] MEDS: KETOROLAC TROMETHAMINE 15 MG/ML VIAL IVPUSH PRN (17:04)
[2023-12-01] MEDS: ACETAMINOPHEN 500 MG TABLET (FP) PO PRN (17:53)
[2023-12-02 07:47] LABS: HEMATOCRIT 30.9 % (32.4-45.2); HEMOGLOBIN 9.5 GM/dL (10.7-15.3); MCHC 30.7 g/dl (32.0-36.0); MEAN CELL VOLUME 71.5 fl (80-96); MEAN PLT VOLUME 8.6 fl (7.5-11.1); PLATELET COUNT 335 10^3/uL (134-434); RBC 4.32 M/mm3 (3.60-5.2); RDW 18.9 % (11.6-15.6); WHITE BLOOD COUNT 6.8 K/mm3 (4.0-10.0)
[2023-12-02 08:11] LABS: POTASSIUM 3.9 mmol/L (3.5-5.1)
[2023-12-02 08:16] LABS: CALCIUM 8.8 mg/dL (8.5-10.1); MAGNESIUM 1.9 mg/dL (1.8-2.4)
[2023-12-02 08:17] LABS: BLOOD UREA NITROGEN 12.1 mg/dL (7-18)
[2023-12-02 08:20] LABS: CREATININE 0.5 mg/dL (0.55-1.3)
[2023-12-02] MEDS: ACETAMINOPHEN 1000 MG/100 ML BAG IVPB PRN (10:11)
[2023-12-02] MEDS: CEFTRIAXONE 1 GM in DEXTROSE 5%-WATER - 50 ML IVPB SCH (17:41)
[2023-12-02] MEDS: morphine SULFATE 4 MG/ML VIAL IVPUSH ONE (20:51)
[2023-12-02] MEDS: LACTATED RINGERS SOLUTION 1,000 ML/1,000 ML INFUS.BAG IV SCH (23:54)
[2023-12-03] MEDS: KETOROLAC TROMETHAMINE 15 MG/ML VIAL IM ONE (03:11)
[2023-12-03] MEDS: MEROPENEM 1 GM in DEXTROSE 5%-WATER 100 ML IVPB SCH (11:41)
[2023-12-03] MEDS: MEROPENEM 1 GM in DEXTROSE 5%-WATER 100 ML IVPB ONE (17:34)
[2023-12-03] MEDS: ONDANSETRON 4 MG/2 ML VIAL IVPUSH ONE (17:35)
[2023-12-04] MEDS: KETOROLAC TROMETHAMINE 15 MG/ML VIAL IVPUSH SCH (17:56)
[2023-12-05] MEDS: KETOROLAC TROMETHAMINE 30 MG/1 ML VIAL IVPUSH ONE (00:37)
[2023-12-05] MEDS: HYDROmorphone HCL CARPU-JECT 2 MG/1 ML DISP.SYRIN IVPB ONE (00:40)
[2023-12-05] MEDS ORDERED: HYDROmorphone HCl 2 MG/ML VIAL IVPB PRN (09:31)
[2023-12-05] MEDS: ACETAMINOPHEN 1000 MG/100 ML BAG IVPB ONE (09:57)
[2023-12-05] MEDS: HYDROmorphone HCL CARPU-JECT 2 MG/1 ML DISP.SYRIN IVPB PRN (09:58)
[2023-12-05] MEDS: ACETAMINOPHEN 500 MG TABLET (FP) PO SCH ×2 (10:52→13:43)
[2023-12-05] MEDS ORDERED: KETOROLAC TROMETHAMINE 15 MG/ML VIAL IVPUSH SCH (13:30)
[2023-12-05] MEDS: NAPROXEN 250 MG TABLET PO ONE (14:17)
[2023-12-06 08:28] LABS: HEMATOCRIT 29.8 % (32.4-45.2); HEMOGLOBIN 9.2 GM/dL (10.7-15.3); MCH 22.3 pg (25.7-33.7); MCHC 30.7 g/dl (32.0-36.0); MEAN CELL VOLUME 72.7 fl (80-96); MEAN PLT VOLUME 9.2 fl (7.5-11.1); PLATELET COUNT 292 10^3/uL (134-434); RDW 18.6 % (11.6-15.6); WHITE BLOOD COUNT 8.6 K/mm3 (4.0-10.0)
[2023-12-06 08:47] LABS: CALCIUM 8.7 mg/dL (8.5-10.1)
[2023-12-06 08:48] LABS: ALBUMIN 3.5 g/dl (3.4-5.0); BLOOD UREA NITROGEN 8.6 mg/dL (7-18)
[2023-12-06 08:50] LABS: CREATININE 0.4 mg/dL (0.55-1.3)
[2023-12-06 08:51] LABS: PHOSPHOROUS 3.6 mg/dL (2.5-4.9)
[2023-12-06 08:52] LABS: BILIRUBIN,TOTAL 0.2 mg/dL (0.2-1); TOT PROT 6.7 g/dl (6.4-8.2)
[2023-12-06] MEDS ORDERED: BUPIVACAINE HCL/PF 0.25% (2.5MG/ML) 10 ML VIAL ONE (13:57)
[2023-12-06] MEDS ORDERED: HEPARIN NA (PORCINE) 5,000 UNITS/ML 1ML VIAL ONE (13:58)
[2023-12-06] MEDS ORDERED: CEFOXITIN SODIUM 1 GM IVPB ONE (13:58)
[2023-12-06] MEDS ORDERED: ACETAMINOPHEN INJECTION 0 ML IVPB ONE (14:11)
[2023-12-06] MEDS ORDERED: MIDAZOLAM HCL 2 MG/2 ML SINGLE DOSE VIAL ONE (14:23)
[2023-12-06] MEDS ORDERED: ROCURONIUM BROMIDE 50 MG/5 ML SYRINGE ONE ×2 (14:29→15:01)
[2023-12-06] MEDS ORDERED: PROPOFOL 20 ML ONE (14:30)
[2023-12-06] MEDS: cefOXitin SODIUM 1 GM VIAL (RESTRICTED TO ID) IVPB ONE (14:45)
[2023-12-06] MEDS ORDERED: KETOROLAC TROMETHAMINE 30 MG/1 ML VIAL ONE (15:00)
[2023-12-06] MEDS ORDERED: ONDANSETRON 4 MG/2 ML VIAL ONE ×2 (15:00)
[2023-12-06] MEDS ORDERED: DEXAMETHASONE SOD PHOSPHATE 4 MG/1 ML VIAL ONE ×2 (15:00)
[2023-12-06] MEDS ORDERED: HYDROmorphone HCl 2 MG/ML VIAL ONE (15:24)
[2023-12-06] MEDS ORDERED: GLYCOPYRROLATE 0.2 MG/1 ML VIAL ONE (15:48)
[2023-12-06] MEDS ORDERED: NEOSTIGMINE METHYLSULFATE 0.5 MG/1 ML - 10 ML MDV ONE (15:48)
[2023-12-06] MEDS: BUPIVACAINE HCL/PF 0.25% (2.5MG/ML) 10 ML VIAL IJ ONE (16:05)
[2023-12-06] MEDS ORDERED: ONDANSETRON 4 MG/2 ML VIAL IVPUSH PRN (16:24)
[2023-12-06] MEDS ORDERED: oxyCODONE HCL 5 MG TABLET PO PRN (16:24)
[2023-12-06] MEDS ORDERED: KETOROLAC TROMETHAMINE 15 MG/ML VIAL IVPUSH ONE (16:52)
[2023-12-06] MEDS: ACETAMINOPHEN INJECTION 100 ML IVPB ONE (16:53)
[2023-12-06] MEDS: ACETAMINOPHEN 1000 MG/100 ML BAG IVPB ONE (16:53)
[2023-12-06] MEDS: oxyCODONE HCL 5 MG TABLET PO PRN (19:30)
[2023-12-06] MEDS ORDERED: HYDROmorphone HCL CARPU-JECT 2 MG/1 ML DISP.SYRIN IVPB PRN (19:46)
[2023-12-06] MEDS: HYDROmorphone HCL CARPU-JECT 2 MG/1 ML DISP.SYRIN IVPB PRN (22:36)
[2023-12-06] MEDS: ACETAMINOPHEN 500 MG TABLET (FP) PO SCH (23:04)
[2023-12-07] MEDS: POLYETHYLENE GLYCOL (HEALTHYLAX) 3350 17 GM PACKET PO SCH (01:14)
[2023-12-07 08:28] LABS: HEMOGLOBIN 9.6 GM/dL (10.7-15.3); MCH 22.5 pg (25.7-33.7); MCHC 31.9 g/dl (32.0-36.0); MEAN CELL VOLUME 70.6 fl (80-96); MEAN PLT VOLUME 9.1 fl (7.5-11.1); PLATELET COUNT 328 10^3/uL (134-434); RBC 4.25 M/mm3 (3.60-5.2); WHITE BLOOD COUNT 10.1 K/mm3 (4.0-10.0)
[2023-12-07 08:34] LABS: POTASSIUM 4.4 mmol/L (3.5-5.1)
[2023-12-07] MEDS: oxyCODONE HCL 5 MG TABLET PO PRN ×2 (08:37→19:27)
[2023-12-07 08:41] LABS: ALBUMIN 3.4 g/dl (3.4-5.0); BLOOD UREA NITROGEN 7.2 mg/dL (7-18); CALCIUM 9.2 mg/dL (8.5-10.1)
[2023-12-07 08:44] LABS: CREATININE 0.6 mg/dL (0.55-1.3); PHOSPHOROUS 3.2 mg/dL (2.5-4.9)
[2023-12-07 08:46] LABS: BILIRUBIN,TOTAL 0.4 mg/dL (0.2-1); TOT PROT 6.8 g/dl (6.4-8.2)
[2023-12-07] MEDS: ESCITALOPRAM OXALATE 10 MG TABLET PO SCH (09:13)
[2023-12-07] MEDS: KETOROLAC TROMETHAMINE 30 MG/1 ML VIAL IVPUSH ONE (11:10)
[2023-12-07] MEDS: HYDROmorphone HCL CARPU-JECT 2 MG/1 ML DISP.SYRIN IVPB PRN (16:33)
[2023-12-07] MEDS: MELATONIN 5 MG TABLETS PO ONE (21:33)
[2023-12-07] MEDS: MELATONIN 5 MG TABLETS PO PRN (21:34)
[2023-12-08] MEDS: ACETAMINOPHEN 500 MG TABLET (FP) PO SCH (06:57)
[2023-12-08 07:03] LABS: HEMATOCRIT 28.9 % (32.4-45.2); HEMOGLOBIN 8.9 GM/dL (10.7-15.3); MCH 22.4 pg (25.7-33.7); MCHC 30.8 g/dl (32.0-36.0); MEAN CELL VOLUME 72.7 fl (80-96); MEAN PLT VOLUME 8.9 fl (7.5-11.1); PLATELET COUNT 292 10^3/uL (134-434); RBC 3.97 M/mm3 (3.60-5.2); RDW 19.8 % (11.6-15.6); WHITE BLOOD COUNT 9.4 K/mm3 (4.0-10.0)
[2023-12-08 07:20] LABS: ALBUMIN 3.3 g/dl (3.4-5.0); CALCIUM 8.5 mg/dL (8.5-10.1)
[2023-12-08 07:21] LABS: BLOOD UREA NITROGEN 14.6 mg/dL (7-18)
[2023-12-08 07:24] LABS: CREATININE 0.6 mg/dL (0.55-1.3); PHOSPHOROUS 3.5 mg/dL (2.5-4.9)
[2023-12-08 07:25] LABS: BILIRUBIN,TOTAL 0.3 mg/dL (0.2-1); TOT PROT 6.6 g/dl (6.4-8.2)
[2023-12-08] MEDS: MELATONIN 5 MG TABLETS PO PRN (23:58)
[2023-12-09] MEDS: LACTATED RINGERS SOLUTION 1,000 ML IV SCH (09:12)
[2023-12-09] MEDS: KETOROLAC TROMETHAMINE 30 MG/1 ML VIAL IM ONE (09:13)
[2023-12-09] MEDS: MELATONIN 5 MG TABLETS PO ONE (09:21)
[2023-12-09] MEDS: ACETAMINOPHEN 1000 MG/100 ML BAG IVPB SCH (18:48)
[2023-12-09] MEDS: QUEtiapine FUMARATE 25 MG TABLET PO SCH (21:18)
[2023-12-10] MEDS ORDERED: LIDOCAINE HCL 1%, 10 MG/ML (20ML VIAL) ONE (10:27)
[2023-12-10] MEDS ORDERED: BUPIVACAINE HCL/PF 0.5% (5MG/ML) 10 ML VIAL ONE (10:27)
[2023-12-10] MEDS ORDERED: LIDOCAINE 1%/EPI 1:100000 (20 ML MULTI DOSE VIAL) ONE (10:29)
[2023-12-10] MEDS: HYDROmorphone HCL CARPU-JECT 2 MG/1 ML DISP.SYRIN IVPB ONE (21:08)
[2023-12-10] MEDS: ACETAMINOPHEN 1000 MG/100 ML BAG IVPB ONE (23:00)
[2023-12-11] MEDS: ACETAMINOPHEN 1000 MG/100 ML BAG IVPB ONE ×2 (01:23→11:04)
[2023-12-11] MEDS: QUEtiapine FUMARATE 25 MG TABLET PO ONE (01:24)
[2023-12-11] MEDS: oxyCODONE HCL 5 MG TABLET PO ONE (01:25)
[2023-12-11 08:18] LABS: BASO % 0.9 % (0-2.0); EOS % 2.6 % (0-4.5); HEMATOCRIT 32.4 % (32.4-45.2); LYMPH % 19.4 % (8-40); MCH 22.6 pg (25.7-33.7); MEAN PLT VOLUME 8.7 fl (7.5-11.1); MONO % 4.7 % (3.8-10.2); NEUT % 72.4 % (42.8-82.8); PLATELET COUNT 274 10^3/uL (134-434); RBC 4.44 M/mm3 (3.60-5.2); RDW 21.5 % (11.6-15.6); WHITE BLOOD COUNT 9.6 K/mm3 (4.0-10.0)
[2023-12-11 10:55] LABS: ANISOCYTOSIS 0; MACROCYTOSIS 0
[2023-12-11] MEDS: HYDROmorphone HCL CARPU-JECT 2 MG/1 ML DISP.SYRIN IVPB PRN (14:00)
[2023-12-12] MEDS: HYDROmorphone HCL CARPU-JECT 2 MG/1 ML DISP.SYRIN IVPUSH PRN (03:22)
[2023-12-12] MEDS: HYDROmorphone HCL CARPU-JECT 2 MG/1 ML DISP.SYRIN IVPB PRN ×2 (06:42→14:46)
[2023-12-12 09:09] LABS: BASO % 0.7 % (0-2.0); EOS % 3.4 % (0-4.5); HEMATOCRIT 30.5 % (32.4-45.2); HEMOGLOBIN 9.9 GM/dL (10.7-15.3); LYMPH % 23.4 % (8-40); MCH 23.1 pg (25.7-33.7); MCHC 32.4 g/dl (32.0-36.0); MEAN CELL VOLUME 71.3 fl (80-96); MEAN PLT VOLUME 8.4 fl (7.5-11.1); NEUT % 64.5 % (42.8-82.8); PLATELET COUNT 269 10^3/uL (134-434); RBC 4.28 M/mm3 (3.60-5.2); RDW 20.9 % (11.6-15.6); WHITE BLOOD COUNT 8.7 K/mm3 (4.0-10.0)
[2023-12-12 09:15] LABS: ACTIVATED PTT 25.8 SECONDS (25.2-36.5)
[2023-12-12 09:17] LABS: INR 1.14 (0.83-1.09); PROTHROMBIN TIME (PATIENT) 13.1 SEC (9.7-13.0)
[2023-12-12 09:24] LABS: POTASSIUM 3.7 mmol/L (3.5-5.1)
[2023-12-12 09:28] LABS: ALBUMIN 3.5 g/dl (3.4-5.0); CALCIUM 8.7 mg/dL (8.5-10.1)
[2023-12-12 09:29] LABS: BLOOD UREA NITROGEN 11.2 mg/dL (7-18); MAGNESIUM 1.9 mg/dL (1.8-2.4)
[2023-12-12 09:31] LABS: CREATININE 0.8 mg/dL (0.55-1.3)
[2023-12-12 09:32] LABS: PHOSPHOROUS 3.8 mg/dL (2.5-4.9)
[2023-12-12 09:33] LABS: BILIRUBIN,TOTAL 0.4 mg/dL (0.2-1); TOT PROT 7.2 g/dl (6.4-8.2)
[2023-12-12] MEDS ORDERED: ACETAMINOPHEN 1000 MG/100 ML BAG IVPB PRN (10:57)
[2023-12-12 18:40] VITALS: RESP 18
[2023-12-13 08:58] LABS: BASO % 0.6 % (0-2.0); EOS % 2.9 % (0-4.5); HEMATOCRIT 30.9 % (32.4-45.2); HEMOGLOBIN 9.9 GM/dL (10.7-15.3); LYMPH % 22.9 % (8-40); MCH 22.9 pg (25.7-33.7); MEAN CELL VOLUME 71.6 fl (80-96); MEAN PLT VOLUME 8.6 fl (7.5-11.1); MONO % 6.8 % (3.8-10.2); NEUT % 66.8 % (42.8-82.8); PLATELET COUNT 312 10^3/uL (134-434); RBC 4.31 M/mm3 (3.60-5.2); RDW 21.1 % (11.6-15.6)
[2023-12-13 09:18] LABS: ALBUMIN 4.1 g/dl (3.4-5.0); BLOOD UREA NITROGEN 17.8 mg/dL (7-18); CALCIUM 9.4 mg/dL (8.5-10.1)
[2023-12-13 09:22] LABS: CREATININE 0.7 mg/dL (0.55-1.3)
[2023-12-13 09:23] LABS: BILIRUBIN,TOTAL 0.3 mg/dL (0.2-1); TOT PROT 8.4 g/dl (6.4-8.2)
[2023-12-14 05:39] VITALS: BP 103/69; PULSE 78; TEMP 99.1
[2023-12-14] MEDS: ACETAMINOPHEN 500 MG TABLET (FP) PO PRN (09:11)
== END 2023-12-14 10:31 | disposition home or self-care (01) | DRG 224 ==
LOC: JER 20:18 → JERBED 11-30 01:18 → J7W 11-30 09:28 → OBSVTOIN 12-03 11:51
PROVIDERS: ADMIT Internal Medicine; ATTEND Internal Medicine
PROC: 0DJD8ZZ Inspection of Lower Intestinal Tract, Via Natural or Artificial Opening Endoscopic (ICD-10-PCS; 2023-12-01)
PROC: 0DBW4ZZ Excision of Peritoneum, Percutaneous Endoscopic Approach (ICD-10-PCS; 2023-12-06)
PROC: 0UB64ZZ Excision of Left Fallopian Tube, Percutaneous Endoscopic Approach (ICD-10-PCS; 2023-12-06)
PROC: 0UB14ZZ Excision of Left Ovary, Percutaneous Endoscopic Approach (ICD-10-PCS; 2023-12-06)
PROC: 8E0W4CZ Robotic Assisted Procedure of Trunk Region, Percutaneous Endoscopic Approach (ICD-10-PCS; 2023-12-06)
PROC: 0DNU4ZZ Release Omentum, Percutaneous Endoscopic Approach (ICD-10-PCS; principal; 2023-12-06 13:15)
DX: K66.8 Other specified disorders of peritoneum (principal); F11.20 Opioid dependence, uncomplicated; K63.89 Other specified diseases of intestine; I10 Essential (primary) hypertension; F32.A Depression, unspecified; D50.9 Iron deficiency anemia, unspecified; N83.202 Unspecified ovarian cyst, left side; K64.9 Unspecified hemorrhoids; G47.00 Insomnia, unspecified
CPT/HCPCS: 36415; 74170-TC; 74176-TC; 74177-TC; 76830-TC; 80048; 80053; 81003; 82378; 82607; 82728; 82746; 83540; 83550; 83605; 83690; 83735; 84100; 84466; 84703; 85025; 85027; 85045; 85610; 85730; 86140; 86304; 86850; 86900; 86901; 87086; 87186; 87389; 88302-TC; 88304-TC; 93005; 93010; 94760; 99285-25; G0378; J0131; J1644; J1756; Q9967